=== PATIENT | male | born 1995 | race Caucasian/White ===

== ENCOUNTER 2019-05-17 21:36 | Observation (INO) ==
[2019-05-17] MEDS ORDERED: Ondansetron 4 MG/2 ML VIAL IVP PRN (23:58)
[2019-05-17] MEDS ORDERED: Naloxone 0.4 MG/ML INJ IVP PRN (23:58)
[2019-05-18] MEDS ORDERED: *HR* Dextrose 50 % in Water (Syg) 50 ML SYRINGE IVP PRN (00:05)
[2019-05-18] MEDS ORDERED: D5% in 0.45% NACL 1,000 ML IVC PRN (00:05)
[2019-05-18] MEDS ORDERED: Insulin Human Regular 100 UNIT in 0.9 % Sodium Chloride 100 ML IVC SCH (00:15)
[2019-05-18 00:39] LABS: Basophils # 0.1 K/mcL (0.0-0.2); Basophils % 0.5 %; Eosinophils % 0.3 %; Hematocrit 37.1 % (37.5-50.1); Hemoglobin 13.6 g/dL (12.9-16.9); Immature Granulocytes % 0.4 % (0-4); Lymphocytes # 2.6 K/mcL (0.6-4.6); Lymphocytes % 28.4 %; Mean Corpuscular HGB Conc 36.7 g/dL (31.6-35.5); Mean Corpuscular Hemoglobin 30.2 pg (28.0-33.3); Mean Corpuscular Volume 82.3 fL (83.0-100.0); Mean Platelet Volume 10.5 fL (9.4-12.4); Monocytes # 0.6 K/mcL (0.0-1.3); Monocytes % 6.3 %; Neutrophils # 5.9 K/mcL (1.6-8.9); Platelet Count 336 K/mcL (140-400); Red Blood Count 4.51 M/mcL (4.19-5.50); Red Cell Distribution Width 12.4 % (11.5-14.5); Segmented Neutrophils % 64.1 %; White Blood Count 9.2 K/mcL (4.3-11.1)
[2019-05-18 00:43] LABS: VBG HCO3 15 mEq/L (21-27); VBG PCO2 31 mmHg (41-51); VBG PH 7.29 pH Units (7.32-7.42); VBG PO2 81 mmHg (25-50)
[2019-05-18 00:55] LABS: Magnesium 1.9 mg/dL (1.6-2.6); Phosphorous 1.5 mg/dL (2.7-4.5)
[2019-05-18 01:08] LABS: BUN/Creatinine Ratio 16 (6-26); Blood Urea Nitrogen 14 mg/dL (6-20); Carbon Dioxide 12 mEq/L (23-29); Chloride 98 mEq/L (98-107); Glucose 400 mg/dL (70-105); Osmolality,Calculated 277 (280-300); Potassium 3.5 mEq/L (3.5-5.1); Sodium 125 mEq/L (136-145); eGFR For African Americans > 60 (> 60); eGFR For Non-African Americans > 60 (> 60)
[2019-05-18] MEDS: 0.9 % Sodium Chloride w KCl 20 MEQ/1,000 ML MLS IVC SCH ×3 (01:27→16:50)
[2019-05-18 04:02] LABS: VBG HCO3 18 mEq/L (21-27); VBG PCO2 36 mmHg (41-51); VBG PH 7.31 pH Units (7.32-7.42); VBG PO2 199 mmHg (25-50)
[2019-05-18 04:16] LABS: BUN/Creatinine Ratio 18 (6-26); Blood Urea Nitrogen 13 mg/dL (6-20); Calcium 8.3 mg/dL (8.6-10.3); Carbon Dioxide 18 mEq/L (23-29); Chloride 103 mEq/L (98-107); Glucose 239 mg/dL (70-105); Osmolality,Calculated 278 (280-300); Potassium 3.5 mEq/L (3.5-5.1); Sodium 130 mEq/L (136-145); eGFR For African Americans > 60 (> 60); eGFR For Non-African Americans > 60 (> 60)
[2019-05-18] MEDS ORDERED: Potassium Phosphate 44 MEQ in 0.9 % Sodium Chloride 250 ML IVPB ONE (04:33)
[2019-05-18] MEDS ORDERED: Insulin DETEMIR 100 UNIT/ML X5UNITS SQ SCH ×3 (05:31→05:45)
[2019-05-18 05:37] LABS: BUN/Creatinine Ratio 18 (6-26); Blood Urea Nitrogen 13 mg/dL (6-20); Calcium 8.1 mg/dL (8.6-10.3); Carbon Dioxide 19 mEq/L (23-29); Chloride 105 mEq/L (98-107); Glucose 178 mg/dL (70-105); Osmolality,Calculated 279 (280-300); Potassium 3.2 mEq/L (3.5-5.1); Sodium 132 mEq/L (136-145); eGFR For African Americans > 60 (> 60); eGFR For Non-African Americans > 60 (> 60)
[2019-05-18 06:15] LABS: Hepatitis B Surface Antibody < 3.10 mIU/mL
[2019-05-18] MEDS: Insulin LISPRO 300 UNITS/3 ML VIAL SQ SCH ×4 (06:29→18:04)
[2019-05-18 06:52] LABS: Bilirubin,Urine Small (Negative); Blood,Urine Negative (Negative); Clarity,Urine Clear (Clear); Color,Urine Yellow (Yellow); Glucose,Urine (UA) >=1000 mg/dL (Normal); Ketones,Urine 80 mg/dL (Negative); Leukocyte Esterase,Urine Negative (Negative); Nitrite,Urine Negative (Negative); Protein,Urine 30 mg/dL (Neg-Trace); Specific Gravity,Urine > 1.030 (1.010-1.025); Urobilinogen,Urine Normal (Normal)
[2019-05-18 06:53] LABS: Bacteria,Urine None Seen per hpf (None-Few); Hyaline Casts,Urine None Seen per lpf (None-Few); RBC,Urine 0-3 per hpf (0-3); Squamous Epithelial Cell,Urine Many per lpf (None-Few); WBC,Urine 0-3 per hpf (0-3)
[2019-05-18] MEDS ORDERED: 0.9 % Sodium Chloride 500 ML ONE (07:17)
[2019-05-18 07:45] LABS: BUN/Creatinine Ratio 18 (6-26); Blood Urea Nitrogen 13 mg/dL (6-20); Calcium 8.2 mg/dL (8.6-10.3); Carbon Dioxide 20 mEq/L (23-29); Chloride 105 mEq/L (98-107); Glucose 148 mg/dL (70-105); Magnesium 1.9 mg/dL (1.6-2.6); Osmolality,Calculated 277 (280-300); Phosphorous 1.8 mg/dL (2.7-4.5); Potassium 3.5 mEq/L (3.5-5.1); Sodium 132 mEq/L (136-145); eGFR For African Americans > 60 (> 60); eGFR For Non-African Americans > 60 (> 60)
[2019-05-18] MEDS ORDERED: Lidocaine -MPF 2% 5 ML VIAL ONE (07:48)
[2019-05-18] MEDS ORDERED: Azithromycin 250 MG TABLET PO ONE (08:00)
[2019-05-18] MEDS ORDERED: cefTRIAXone 250 MG VIAL IM ONE (08:00)
[2019-05-18 08:16] LABS: Chlamydia Trachomatis DNA Ur NOT DETECTED (Not Detect)
[2019-05-18 09:14] LABS: Estimated Average Glucose 355 mg/dl
[2019-05-18 14:01] LABS: HIV-1&2 Antibody & p24 Ag Nonreactive (Nonreactive)
[2019-05-18 16:18] LABS: Hepatitis C Virus Antibody Nonreactive (Nonreactive)
[2019-05-18] MEDS ORDERED: Insulin LISPRO 300 UNITS/3 ML VIAL SQ SCH (21:00)
[2019-05-18] MEDS: Insulin DETEMIR 100 UNIT/ML X5UNITS SQ SCH (22:11)
[2019-05-19 02:55] VITALS: BP 105/61
[2019-05-19 05:55] LABS: BUN/Creatinine Ratio 21 (6-26); Blood Urea Nitrogen 10 mg/dL (6-20); Calcium 8.6 mg/dL (8.6-10.3); Carbon Dioxide 26 mEq/L (23-29); Chloride 101 mEq/L (98-107); Glucose 178 mg/dL (70-105); Magnesium 1.9 mg/dL (1.6-2.6); Osmolality,Calculated 281 (280-300); Phosphorous 2.8 mg/dL (2.7-4.5); Potassium 3.5 mEq/L (3.5-5.1); Sodium 134 mEq/L (136-145); eGFR For African Americans > 60 (> 60); eGFR For Non-African Americans > 60 (> 60)
[2019-05-19] MEDS: Insulin LISPRO 300 UNITS/3 ML VIAL SQ SCH ×2 (12:22→12:28)
[2019-05-19] MEDS: Insulin DETEMIR 100 UNIT/ML X5UNITS SQ SCH (12:26)
== END 2019-05-19 13:25 | disposition home or self-care (01) ==
LOC: 2NNU → SUATTDRO 05-18 04:44 → 3BNU 05-18 15:58
PROVIDERS: ADMIT Family Medicine; ATTEND Internal Medicine

== ENCOUNTER 2020-04-15 19:06 | Observation (INO) ==
[2020-04-15] MEDS ORDERED: Naloxone 0.4 MG/ML INJ IVP PRN (22:03)
[2020-04-15 22:22] LABS: Basophils # 0.2 K/mcL (0.0-0.2); Basophils % 0.9 %; Hemoglobin 12.7 g/dL (12.9-16.9); Immature Granulocytes % 1.1 % (0-4); Lymphocytes # 3.3 K/mcL (0.6-4.6); Lymphocytes % 18.8 %; Mean Corpuscular HGB Conc 34.3 g/dL (31.6-35.5); Mean Corpuscular Hemoglobin 30.2 pg (28.0-33.3); Mean Corpuscular Volume 88.1 fL (83.0-100.0); Mean Platelet Volume 9.7 fL (9.4-12.4); Monocytes # 0.8 K/mcL (0.0-1.3); Monocytes % 4.6 %; Neutrophils # 13.2 K/mcL (1.6-8.9); Platelet Count 281 K/mcL (140-400); Red Cell Distribution Width 12.2 % (11.5-14.5); Segmented Neutrophils % 74.6 %; White Blood Count 17.7 K/mcL (4.3-11.1)
[2020-04-15 22:46] LABS: BUN/Creatinine Ratio 22 (6-26); Blood Urea Nitrogen 20 mg/dL (6-20); Carbon Dioxide 13 mEq/L (23-29); Chloride 103 mEq/L (98-107); Glucose 201 mg/dL (70-105); Magnesium 1.9 mg/dL (1.6-2.6); Osmolality,Calculated 284 (280-300); Phosphorous 2.4 mg/dL (2.7-4.5); Potassium 4.9 mEq/L (3.5-5.1); Sodium 133 mEq/L (136-145); eGFR For African Americans > 60 (> 60); eGFR For Non-African Americans > 60 (> 60)
[2020-04-15 22:58] LABS: VBG HCO3 12 mEq/L (21-27); VBG Ionized Calcium 1.07 mmol/L (1.15-1.35); VBG PCO2 26 mmHg (41-51); VBG PH 7.27 pH Units (7.32-7.42); VBG PO2 204 mmHg (25-50)
[2020-04-15] MEDS ORDERED: D5% in 0.45% NACL 1,000 ML IVC PRN (22:58)
[2020-04-15] MEDS ORDERED: *HR* Dextrose 50 % in Water (Vial) 50 ML VIAL IVP PRN (22:58)
[2020-04-15] MEDS ORDERED: Insulin Human Regular 100 UNIT in 0.9 % Sodium Chloride 100 ML IVC SCH (23:00)
[2020-04-15] MEDS ORDERED: *HR* Promethazine 25 MG/ML VIAL IVP PRN (23:14)
[2020-04-16] MEDS: 0.9 % Sodium Chloride w KCl 20 MEQ/1,000 ML MLS IVC SCH ×5 (00:13→17:42)
[2020-04-16] MEDS: D5% in 0.45% NACL w KCl 20 MEQ/1,000 ML MLS IVC PRN ×4 (02:12→15:52)
[2020-04-16 02:36] LABS: Basophils # 0.2 K/mcL (0.0-0.2); Eosinophils # 0.1 K/mcL (0.0-0.6); Eosinophils % 0.3 %; Hematocrit 35.9 % (37.5-50.1); Hemoglobin 12.2 g/dL (12.9-16.9); Immature Granulocytes % 0.7 % (0-4); Lymphocytes # 3.6 K/mcL (0.6-4.6); Lymphocytes % 25.2 %; Mean Corpuscular Hemoglobin 30.7 pg (28.0-33.3); Mean Corpuscular Volume 90.2 fL (83.0-100.0); Monocytes # 0.6 K/mcL (0.0-1.3); Monocytes % 4.4 %; Neutrophils # 9.9 K/mcL (1.6-8.9); Platelet Count 271 K/mcL (140-400); Red Blood Count 3.98 M/mcL (4.19-5.50); Red Cell Distribution Width 12.2 % (11.5-14.5); Segmented Neutrophils % 68.4 %; White Blood Count 14.4 K/mcL (4.3-11.1)
[2020-04-16 02:54] LABS: VBG HCO3 13 mEq/L (21-27); VBG PCO2 34 mmHg (41-51); VBG PO2 93 mmHg (25-50)
[2020-04-16 02:54] LABS: Alanine Aminotransferase 38 Units/L (7-52); Albumin 3.8 g/dL (3.5-5.7); Albumin/Globulin Ratio 1.7 (1.1-2.2); Alkaline Phosphatase 72 Units/L (34-104); Aspartate Amino Transferase 28 Units/L (13-39); BUN/Creatinine Ratio 17 (6-26); Bilirubin,Total 0.3 mg/dL (0.3-1.0); Blood Urea Nitrogen 15 mg/dL (6-20); Calcium 7.5 mg/dL (8.6-10.3); Carbon Dioxide 11 mEq/L (23-29); Chloride 106 mEq/L (98-107); Globulin 2.2 g/dL (2.4-3.5); Glucose 175 mg/dL (70-105); Magnesium 1.7 mg/dL (1.6-2.6); Osmolality,Calculated 283 (280-300); Phosphorous 2.3 mg/dL (2.7-4.5); Potassium 3.8 mEq/L (3.5-5.1); Sodium 134 mEq/L (136-145); eGFR For African Americans > 60 (> 60); eGFR For Non-African Americans > 60 (> 60)
[2020-04-16] MEDS ORDERED: Magnesium Sulfate 1 GM/102 ML PIGGYBACK IVPB ONE (02:59)
[2020-04-16 03:30] LABS: Hepatitis B Surface Antigen Nonreactive (Nonreactive)
[2020-04-16] MEDS: Calcium Gluconate 1gm/50mL 1 GM/50 ML BAG IVPB SCH ×2 (03:52→04:26)
[2020-04-16 03:59] LABS: Hepatitis B Core IgM Nonreactive (Nonreactive); Hepatitis C Virus Antibody Nonreactive (Nonreactive)
[2020-04-16 04:01] LABS: Hepatitis A Antibody IgM Nonreactive (Nonreactive)
[2020-04-16] MEDS: *HR* Heparin 5,000 UNIT/ML VIAL SQ SCH ×3 (04:26→20:21)
[2020-04-16 04:36] LABS: Amphetamine Screen,Urine Positive ng/mL (Cutoff=1000); Barbiturate Screen,Urine Negative ng/mL (Cutoff=200); Benzodiazepines Screen,Urine Negative ng/mL (Cutoff=200); Cannabinoid Screen,Urine Negative ng/mL (Cutoff = 50); Cocaine Screen,Urine Negative ng/mL (Cutoff= 300); Opiate Screen,Urine Negative ng/mL (Cutoff=300); Phencyclidine Screen,Urine Negative ng/mL (Cutoff=25)
[2020-04-16 06:48] LABS: VBG HCO3 21 mEq/L (21-27); VBG PCO2 50 mmHg (41-51); VBG PH 7.23 pH Units (7.32-7.42); VBG PO2 60 mmHg (25-50)
[2020-04-16 07:02] LABS: Potassium 3.7 mEq/L (3.5-5.1)
[2020-04-16] MEDS ORDERED: Potassium Phosphate 44 MEQ in 0.9 % Sodium Chloride 250 ML IVPB ONE (08:59)
[2020-04-16 09:29] LABS: Estimated Average Glucose 427 mg/dl; Hemoglobin A1C 16.5 %
[2020-04-16 09:48] LABS: VBG Ionized Calcium 1.24 mmol/L (1.15-1.35)
[2020-04-16 10:06] LABS: Magnesium 1.8 mg/dL (1.6-2.6)
[2020-04-16 11:10] LABS: BUN/Creatinine Ratio 16 (6-26); Blood Urea Nitrogen 12 mg/dL (6-20); Calcium 8.1 mg/dL (8.6-10.3); Carbon Dioxide 16 mEq/L (23-29); Chloride 108 mEq/L (98-107); Glucose 107 mg/dL (70-105); Osmolality,Calculated 278 (280-300); Potassium 3.9 mEq/L (3.5-5.1); Sodium 134 mEq/L (136-145); eGFR For African Americans > 60 (> 60); eGFR For Non-African Americans > 60 (> 60)
[2020-04-16 12:27] LABS: VBG HCO3 19 mEq/L (21-27); VBG PCO2 47 mmHg (41-51); VBG PH 7.22 pH Units (7.32-7.42); VBG PO2 48 mmHg (25-50)
[2020-04-16 15:39] LABS: VBG HCO3 21 mEq/L (21-27); VBG PCO2 47 mmHg (41-51); VBG PH 7.26 pH Units (7.32-7.42); VBG PO2 54 mmHg (25-50)
[2020-04-16 16:00] LABS: BUN/Creatinine Ratio 13 (6-26); Blood Urea Nitrogen 9 mg/dL (6-20); Carbon Dioxide 19 mEq/L (23-29); Chloride 108 mEq/L (98-107); Glucose 118 mg/dL (70-105); Osmolality,Calculated 276 (280-300); Potassium 4.2 mEq/L (3.5-5.1); Sodium 133 mEq/L (136-145); eGFR For African Americans > 60 (> 60); eGFR For Non-African Americans > 60 (> 60)
[2020-04-16] MEDS ORDERED: Insulin LISPRO 300 UNITS/3 ML VIAL SQ SCH ×3 (16:30→21:00)
[2020-04-16] MEDS: Insulin LISPRO 300 UNITS/3 ML VIAL SQ SCH (17:04)
[2020-04-16] MEDS: Insulin DETEMIR 100 UNIT/ML X5UNITS SQ SCH (17:31)
[2020-04-17 01:13] LABS: VBG Base Excess -3 mEq/L; VBG Chloride 106 mEq/L (98-107); VBG HCO3 22 mEq/L (21-27); VBG Oxygen Saturation 100 %; VBG PCO2 36 mmHg (41-51); VBG PH 7.39 pH Units (7.32-7.42); VBG PO2 192 mmHg (25-50); VBG Total CO2 23 mEq/L
[2020-04-17 01:14] LABS: Hematocrit 36.8 % (37.5-50.1); Hemoglobin 12.8 g/dL (12.9-16.9); Mean Corpuscular HGB Conc 34.8 g/dL (31.6-35.5); Mean Corpuscular Hemoglobin 30.8 pg (28.0-33.3); Mean Corpuscular Volume 88.7 fL (83.0-100.0); Mean Platelet Volume 9.5 fL (9.4-12.4); Platelet Count 223 K/mcL (140-400); Red Blood Count 4.15 M/mcL (4.19-5.50); Red Cell Distribution Width 12.4 % (11.5-14.5)
[2020-04-17 01:15] LABS: White Blood Count 6.6 K/mcL (4.3-11.1)
[2020-04-17 01:34] LABS: BUN/Creatinine Ratio 13 (6-26); Blood Urea Nitrogen 9 mg/dL (6-20); Calcium 8.1 mg/dL (8.6-10.3); Carbon Dioxide 19 mEq/L (23-29); Chloride 107 mEq/L (98-107); Glucose 206 mg/dL (70-105); Osmolality,Calculated 285 (280-300); Potassium 3.5 mEq/L (3.5-5.1); Sodium 135 mEq/L (136-145); eGFR For African Americans > 60 (> 60); eGFR For Non-African Americans > 60 (> 60)
[2020-04-17] MEDS: *HR* Heparin 5,000 UNIT/ML VIAL SQ SCH ×2 (05:32→13:43)
[2020-04-17] MEDS: Insulin DETEMIR 100 UNIT/ML X5UNITS SQ SCH (07:32)
[2020-04-17] MEDS: Insulin LISPRO 300 UNITS/3 ML VIAL SQ SCH ×2 (07:32→12:11)
[2020-04-17 11:26] VITALS: BP 123/81
== END 2020-04-17 14:39 | disposition home or self-care (01) ==
LOC: 2NNU → SUATTDRO 21:05
PROVIDERS: ADMIT Student in an Organized Health Care Education/Training Program; ATTEND Internal Medicine

== ENCOUNTER 2021-02-02 15:48 | Observation (INO) ==
[2021-02-02] MEDS ORDERED: Insulin Regular, Human 100 UNIT/ML IV PRN (20:39)
[2021-02-02] MEDS ORDERED: D5% in 0.45% NACL 1,000 ML IVC PRN (20:39)
[2021-02-02] MEDS ORDERED: *HR* Dextrose 50 % in Water (Vial) 50 ML VIAL IVP PRN (20:39)
[2021-02-02 21:16] LABS: Basophils # 0.1 K/mcL (0.0-0.2); Basophils % 0.3 %; Hematocrit 42.8 % (37.5-50.1); Hemoglobin 13.8 g/dL (12.9-16.9); Immature Granulocytes % 0.6 % (0-4); Lymphocytes # 1.7 K/mcL (0.6-4.6); Lymphocytes % 9.3 %; Mean Corpuscular HGB Conc 32.2 g/dL (31.6-35.5); Mean Corpuscular Hemoglobin 31.8 pg (28.0-33.3); Mean Corpuscular Volume 98.6 fL (83.0-100.0); Mean Platelet Volume 9.7 fL (9.4-12.4); Monocytes % 5.4 %; Neutrophils # 14.9 K/mcL (1.6-8.9); Platelet Count 222 K/mcL (140-400); Red Blood Count 4.34 M/mcL (4.19-5.50); Red Cell Distribution Width 12.6 % (11.5-14.5); Segmented Neutrophils % 84.4 %; White Blood Count 17.7 K/mcL (4.3-11.1)
[2021-02-02 21:29] LABS: Amphetamine Screen,Urine Negative ng/mL (Cutoff=1000); Barbiturate Screen,Urine Negative ng/mL (Cutoff=200); Benzodiazepines Screen,Urine Negative ng/mL (Cutoff=200); Cannabinoid Screen,Urine Negative ng/mL (Cutoff = 50); Cocaine Screen,Urine Negative ng/mL (Cutoff= 300); Opiate Screen,Urine Negative ng/mL (Cutoff=300); Phencyclidine Screen,Urine Negative ng/mL (Cutoff=25)
[2021-02-02 21:35] LABS: Magnesium 1.8 mg/dL (1.6-2.6); Phosphorous 3.1 mg/dL (2.7-4.5)
[2021-02-02] MEDS: 0.45 % Sodium Chloride w/KCl 20 MEQ/1,000 ML MLS IVC SCH ×2 (21:37→22:50)
[2021-02-02 22:05] LABS: BUN/Creatinine Ratio 13 (6-26); Blood Urea Nitrogen 11 mg/dL (6-20); Calcium 7.5 mg/dL (8.6-10.3); Carbon Dioxide < 3 mEq/L (23-29); Chloride 102 mEq/L (98-107); Glucose 390 mg/dL (70-105); Osmolality,Calculated 284 (280-300); Potassium 4.8 mEq/L (3.5-5.1); Sodium 129 mEq/L (136-145); eGFR For African Americans > 60 (> 60); eGFR For Non-African Americans > 60 (> 60)
[2021-02-02] MEDS ORDERED: WATER FOR INJ IVC SCH (22:05)
[2021-02-02] MEDS ORDERED: SODIUM BICARBONATE IVC SCH (22:05)
[2021-02-02] MEDS ORDERED: Naloxone 0.4 MG/ML INJ IVP PRN (22:08)
[2021-02-02] MEDS: D5% in 0.45% NACL w KCl 20 MEQ/1,000 ML MLS IVC PRN (23:45)
[2021-02-03 00:32] LABS: Hematocrit 48.6 % (37.5-50.1); Mean Corpuscular HGB Conc 32.5 g/dL (31.6-35.5); Mean Corpuscular Hemoglobin 31.8 pg (28.0-33.3); Mean Corpuscular Volume 97.8 fL (83.0-100.0); Mean Platelet Volume 9.7 fL (9.4-12.4); Platelet Count 209 K/mcL (140-400); Red Blood Count 4.97 M/mcL (4.19-5.50); Red Cell Distribution Width 12.7 % (11.5-14.5); White Blood Count 16.4 K/mcL (4.3-11.1)
[2021-02-03 00:34] LABS: Hemoglobin 15.8 g/dL (12.9-16.9)
[2021-02-03 00:35] LABS: VBG HCO3 8 mEq/L (21-27); VBG PCO2 26 mmHg (41-51); VBG PH 7.08 pH Units (7.32-7.42); VBG PO2 53 mmHg (25-50)
[2021-02-03 01:07] LABS: Alanine Aminotransferase 53 Units/L (7-52); Albumin/Globulin Ratio 1.3 (1.1-2.2); Alkaline Phosphatase 172 Units/L (34-104); Aspartate Amino Transferase 34 Units/L (13-39); BUN/Creatinine Ratio 12 (6-26); Bilirubin,Total 0.4 mg/dL (0.3-1.0); Blood Urea Nitrogen 10 mg/dL (6-20); Calcium 7.6 mg/dL (8.6-10.3); Carbon Dioxide 5 mEq/L (23-29); Chloride 105 mEq/L (98-107); Estimated Average Glucose 335 mg/dl; Glucose 195 mg/dL (70-105); Hemoglobin A1C 13.3 %; Osmolality,Calculated 276 (280-300); Potassium 4.3 mEq/L (3.5-5.1); Sodium 131 mEq/L (136-145); eGFR For African Americans > 60 (> 60); eGFR For Non-African Americans > 60 (> 60)
[2021-02-03] MEDS: Sodium Bicarbonate 150 MEQ in Water for inj. (sterile) 1,000 ML IVC SCH (01:32)
[2021-02-03 02:29] LABS: VBG HCO3 12 mEq/L (21-27); VBG PCO2 26 mmHg (41-51); VBG PH 7.26 pH Units (7.32-7.42); VBG PO2 168 mmHg (25-50)
[2021-02-03 02:53] LABS: BUN/Creatinine Ratio 11 (6-26); Blood Urea Nitrogen 8 mg/dL (6-20); Calcium 7.7 mg/dL (8.6-10.3); Carbon Dioxide 10 mEq/L (23-29); Chloride 106 mEq/L (98-107); Glucose 160 mg/dL (70-105); Osmolality,Calculated 274 (280-300); Potassium 4.1 mEq/L (3.5-5.1); Sodium 131 mEq/L (136-145); eGFR For African Americans > 60 (> 60); eGFR For Non-African Americans > 60 (> 60)
[2021-02-03] MEDS: *HR* Enoxaparin 80 MG/0.8 ML SYRINGE SQ SCH ×3 (04:04→18:20)
[2021-02-03] MEDS: D5% in 0.45% NACL w KCl 20 MEQ/1,000 ML MLS IVC PRN (04:04)
[2021-02-03 05:06] LABS: VBG HCO3 16 mEq/L (21-27); VBG PCO2 30 mmHg (41-51); VBG PH 7.35 pH Units (7.32-7.42); VBG PO2 142 mmHg (25-50)
[2021-02-03 05:27] LABS: BUN/Creatinine Ratio 11 (6-26); Blood Urea Nitrogen 7 mg/dL (6-20); Calcium 7.5 mg/dL (8.6-10.3); Carbon Dioxide 15 mEq/L (23-29); Chloride 105 mEq/L (98-107); Glucose 107 mg/dL (70-105); Osmolality,Calculated 268 (280-300); Potassium 3.4 mEq/L (3.5-5.1); Sodium 130 mEq/L (136-145); eGFR For African Americans > 60 (> 60); eGFR For Non-African Americans > 60 (> 60)
[2021-02-03 06:31] LABS: VBG HCO3 18 mEq/L (21-27); VBG PCO2 32 mmHg (41-51); VBG PH 7.37 pH Units (7.32-7.42); VBG PO2 71 mmHg (25-50)
[2021-02-03 06:47] LABS: BUN/Creatinine Ratio 11 (6-26); Blood Urea Nitrogen 7 mg/dL (6-20); Calcium 7.8 mg/dL (8.6-10.3); Carbon Dioxide 17 mEq/L (23-29); Chloride 104 mEq/L (98-107); Glucose 124 mg/dL (70-105); Osmolality,Calculated 271 (280-300); Potassium 3.3 mEq/L (3.5-5.1); Sodium 131 mEq/L (136-145); eGFR For African Americans > 60 (> 60); eGFR For Non-African Americans > 60 (> 60)
[2021-02-03] MEDS ORDERED: D5% in Water 1,000 ML IVC PRN (07:21)
[2021-02-03] MEDS ORDERED: *HR* Dextrose 50 % in Water (Vial) 50 ML VIAL IVP PRN (07:21)
[2021-02-03] MEDS ORDERED: Dextrose Gel 15 GM/37.5 ML TUBE PO PRN ×2 (07:21)
[2021-02-03] MEDS: Insulin LISPRO 300 UNITS/3 ML VIAL SUBQ SCH ×3 (08:24→18:20)
[2021-02-03] MEDS: Insulin DETEMIR 100 UNIT/ML X5UNITS SUBQ SCH (08:29)
[2021-02-03] MEDS: 0.45 % Sodium Chloride w/KCl 20 MEQ/1,000 ML MLS IVC SCH ×2 (18:22→18:23)
[2021-02-03] MEDS ORDERED: Insulin LISPRO 300 UNITS/3 ML VIAL SUBQ SCH (21:00)
[2021-02-03 21:17] LABS: Bilirubin,Urine Negative (Negative); Blood,Urine Negative (Negative); Clarity,Urine Clear (Clear); Color,Urine Colorless (Yellow); Glucose,Urine (UA) >=1000 mg/dL (Normal); Ketones,Urine Negative (Negative); Leukocyte Esterase,Urine Negative (Negative); Nitrite,Urine Negative (Negative); PH,Urine 6.5 pH Units (5.0-8.0); Protein,Urine Negative (Neg-Trace); RBC,Urine 0-3 per hpf (0-3); Specific Gravity,Urine 1.014 (1.010-1.025); Urobilinogen,Urine Normal (Normal); WBC,Urine 0-3 per hpf (0-3)
[2021-02-04 05:08] LABS: BUN/Creatinine Ratio 21 (6-26); Blood Urea Nitrogen 9 mg/dL (6-20); Carbon Dioxide 27 mEq/L (23-29); Chloride 98 mEq/L (98-107); Glucose 188 mg/dL (70-105); Osmolality,Calculated 276 (280-300); Potassium 3.1 mEq/L (3.5-5.1); Sodium 131 mEq/L (136-145); eGFR For African Americans > 60 (> 60); eGFR For Non-African Americans > 60 (> 60)
[2021-02-04] MEDS: *HR* Enoxaparin 80 MG/0.8 ML SYRINGE SQ SCH (05:20)
[2021-02-04 05:57] LABS: Basophils % 0.5 %; Eosinophils # 0.1 K/mcL (0.0-0.6); Eosinophils % 0.7 %; Hematocrit 31.2 % (37.5-50.1); Immature Granulocytes % 0.1 % (0-4); Lymphocytes # 2.5 K/mcL (0.6-4.6); Lymphocytes % 33.3 %; Mean Corpuscular HGB Conc 35.9 g/dL (31.6-35.5); Mean Corpuscular Hemoglobin 32.1 pg (28.0-33.3); Monocytes # 0.6 K/mcL (0.0-1.3); Monocytes % 8.7 %; Neutrophils # 4.2 K/mcL (1.6-8.9); Platelet Count 159 K/mcL (140-400); Red Blood Count 3.49 M/mcL (4.19-5.50); Red Cell Distribution Width 11.9 % (11.5-14.5); Segmented Neutrophils % 56.7 %
[2021-02-04 05:58] LABS: Hemoglobin 11.2 g/dL (12.9-16.9); Mean Corpuscular Volume 89.4 fL (83.0-100.0); White Blood Count 7.4 K/mcL (4.3-11.1)
[2021-02-04] MEDS: 0.45 % Sodium Chloride w/KCl 20 MEQ/1,000 ML MLS IVC SCH (07:10)
[2021-02-04] MEDS: Sodium Bicarbonate 150 MEQ in Water for inj. (sterile) 1,000 ML IVC SCH (07:10)
[2021-02-04] MEDS: Insulin LISPRO 300 UNITS/3 ML VIAL SUBQ SCH ×2 (07:42→11:34)
[2021-02-04] MEDS: Insulin DETEMIR 100 UNIT/ML X5UNITS SUBQ SCH (07:42)
[2021-02-04] MEDS ORDERED: Potassium Chloride 40 MEQ, Lidocaine 1% 2 ML in 0.9 % Sodium Chloride 500 ML IVPB ONE (08:01)
[2021-02-04 09:13] LABS: ABG PCO2 < 13 mmHg (35-45); ABG PH 7.03 pH Units (7.32-7.45); ABG PO2 129 mmHg (85-104)
[2021-02-04 11:25] VITALS: BP 116/72
== END 2021-02-04 17:02 | disposition home or self-care (01) ==
LOC: 2NNU → SUATTDRO 20:10 → 3ANU 02-03 14:34
PROVIDERS: ADMIT Pediatrics; ATTEND Student in an Organized Health Care Education/Training Program